=== PATIENT | female | born 1960 | race Two or more races ===

== ENCOUNTER → 2022-01-13 | Outpatient (CLI) | payer MEDICAID ==
[~2022-01-13] VITALS: Ht 154.9 cm; Wt 53.5 kg
== END | disposition home or self-care (01) ==
LOC: Rad HDHVI 09:42
PROVIDERS: ATTEND Internal Medicine Cardiovascular Disease
DX: I10 Essential (primary) hypertension (principal); I20.0 Unstable angina; R06.02 Shortness of breath; R07.89 Other chest pain
CPT/HCPCS: 78452; 93017; 96374; A9500

== ENCOUNTER → 2022-03-26 | Outpatient (CLI) | payer MEDICAID ==
[~2022-03-26] MED LIST: CLOP75TA28 PO; EMPA1TAB3 PO; GLIP10TA9 PO; INSLANTI SC; METF-370 PO; SIMV-13 PO
[2022-03-26 08:27] VITALS: BP 129/66
[2022-03-26 08:50] VITALS: BP 131/66
[2022-03-26 09:35] LABS: Basophils # (auto) 0 10 ^3/uL (0-0.2); Basophils % (auto) 0.8 % (0.0-2.0); Eosinophils # (auto) 0.1 10 ^3/uL (0-0.8); Eosinophils % (auto) 2.8 % (0.0-7.0); Hematocrit 39.6 % (36.0-46.0); Hemoglobin 13.4 g/dL (12.2-16.2); Lymphocytes # (auto) 1.9 10 ^3/uL (0.4-5.4); Lymphocytes % (auto) 39.9 % (10.0-50.0); Mean Corpuscular Hemoglobin 33.1 pg (28.0-32.0); Mean Corpuscular Hgb Conc. 33.7 g/dL (32.0-36.0); Monocytes # (auto) 0.4 10 ^3/uL (0-1.3); Monocytes % (auto) 7.9 % (0.0-12.0); Neutrophils # (auto) 2.3 10 ^3/uL (1.6-8.6); Neutrophils % (auto) 48.6 % (37.0-80.0); Nucleated Red Blood Cells % 0.1 %; Red Blood Cells 4.04 10^6/uL (4.0-5.20); Red Cell Distribution Width 13.9 % (11.8-14.3); White Blood Cell 4.8 10^3/uL (4.4-10.8)
[2022-03-26 09:54] LABS: Calcium 9.1 mg/dL (8.5-10.1); Potassium 4.2 mmol/L (3.5-5.1)
[2022-03-26 09:58] LABS: BUN/Creatinine Ratio 26.7
[2022-03-26 10:08] LABS: Partial Thromboplastin Time 26.8 sec (23.6-33.0)
== END | disposition home or self-care (01) ==
LOC: Rad HDHVI 08:10
PROVIDERS: ATTEND Internal Medicine Cardiovascular Disease
DX: Z01.818 Encounter for other preprocedural examination (principal); R07.89 Other chest pain; I10 Essential (primary) hypertension
CPT/HCPCS: 36415; 71046; 80048; 85025; 85610; 85730; 93005; G0463

== ENCOUNTER 2022-03-30 11:10 | Day surgery (SDC) | payer MEDICAID ==
[~2022-03-30] VITALS: Ht 154.9 cm; Wt 55.8 kg
[2022-03-30] MEDS ORDERED: MIDAZOLAM HCL 2MG/2ML 2ml VIAL (1mg/ml) ONE (13:51)
[2022-03-30] MEDS ORDERED: ANGIOMAX 250 MG VIAL IV ONE (13:51)
[2022-03-30] MEDS ORDERED: fentaNYL CITRATE 100 MCG/2 ML VL ONE (13:51)
[2022-03-30] MEDS ORDERED: SODIUM CHL 0.9% 0 ML ONE (13:51)
[2022-03-30] MEDS ORDERED: IODIXANOL 320MG/ML 100ML BTL IV ONE (13:53)
[2022-03-30] MEDS ORDERED: IOHEXOL 350 MG/ML 100ML IJ ONE (13:54)
== END 2022-03-30 16:01 | disposition home or self-care (01) ==
LOC: CATH 11:10
PROVIDERS: ATTEND Internal Medicine Cardiovascular Disease
DX: R94.39 Abnormal result of other cardiovascular function study (principal); I10 Essential (primary) hypertension; E78.5 Hyperlipidemia, unspecified; E11.9 Type 2 diabetes mellitus without complications; Z20.822 Contact with and (suspected) exposure to COVID-19; Z79.84 Long term (current) use of oral hypoglycemic drugs
CPT/HCPCS: 75736; 93458; C1760; C1894; J1644; J2250; J3010; Q9967; U0003; 99152